=== PATIENT | female | born 1970 ===

== ENCOUNTER 2024-10-03 15:06 | Emergency (ER) | payer SELFPAY ==
[2024-10-03] VITALS (17 sets, daily range): BP systolic 121–143; BP diastolic 67–79; PULSE 97–109; RESP 22–45; TEMP 37.1; O2SAT 83–96; BMI 15.3
--- NOTE | 2024-10-03 18:17 | ED.NAVMDI ---
HPI - Nausea/Vomiting/Diarrhea General Chief complaint: Nausea/Vomiting Stated complaint: Bloody Vomit, rib pain Time Seen by Provider: 10/03/24 18:12 History of Present Illness HPI Narrative: This 54-year-old female comes in reporting nausea, vomiting, and some diarrhea that began today. She has associated bilateral rib pain related to vomiting. She also wrist ports some small amount of blood in the vomit. Prior to this she states she has been in good health. She is not on any medications. She is cachectic with a BMI of 15. Related Data Home Medications ?Medication ?Instructions ?Recorded ?Confirmed No Known Home Medications 10/03/24 10/03/24 Allergies Allergy/AdvReac Type Severity Reaction Status Date / Time ibuprofen (From Motrin) Allergy Severe Verified 10/03/24 15:24 ketorolac (From Toradol) Allergy Severe Verified 10/03/24 15:24 tramadol Allergy Severe Verified 10/03/24 15:24 Review of Systems Status of ROS: Reports: 10 or more systems reviewed and unremarkable except as noted in History and below Narrative: Constitutional: No fevers, no weight gain or loss. Eyes: No discharge. No vision changes. HENT: No congestion, no sore throat, no ear pain. Cardiovascular: No chest pain, no palpitations. Respiratory: No shortness of breath, no wheezes, no cough. Gastrointestinal: No abdominal pain. Nausea, vomiting, and some diarrhea. Genitourinary: No dysuria, no hematuria. Musculoskeletal: Normal range of motion. Skin: No rashes, no pruritis. Neurological: No dizziness, weakness, sensory change, speech change. Endo/Heme/Allergies: No bruising or bleeding. No polydipsia. Pysch: no suicidality, no anxiety, no insomnia. All other systems reviewed and are negative. [facility] Social History Smoking Status: Current every day smoker What tobacco products do you use: cigarettes Do you use any of these nicotine containing products: None How often do you have a drink containing alcohol: never How often do you have six or more drinks on one occasion: Never AUDIT-C Alcohol total score: 0 Non-prescribed substance use: denies use Exam Narrative: Exam Narrative: Constitutional: No acute distress. HEENT: Normocephalic, atraumatic. Neck: Normal range of motion. Nontender. Supple. Heart: Regular. No murmurs. Tachycardia, rate around 105-110 beats per minute. Intact distal pulses. Lungs: Clear to auscultation. No wheezes, rhonchi, or rales. Abdomen: Normal bowel sounds. Nontender. No rebound tenderness. Bilateral lower rib discomfort when taking a deep breath and when pressing in these areas. Genitalia: Deferred. Back: No midline tenderness. Normal range of motion. Extremities: Normal range of motion. No injury. Skin: Intact. No rash. Warm. No erythema or pallor. Neurologic: No altered sensation. No weakness. Alert and oriented. Psychiatric: No suicidality. No anxiety or depression. No insomnia. Nursing notes and vitals signs are reviewed. Const: Vital Signs, click to edit/add: Vital Signs - 24 hr 10/03/24 15:14 10/03/24 18:48 10/03/24 18:49 Temperature 98.7 F Pulse Rate 98 98 Pulse Rate [Right Pulse Oximeter] 108 H Respiratory Rate 22 Blood Pressure 138/68 Blood Pressure [Ri ght Upper Arm] 121/67 Pulse Oximetry 95 92 92 Oxygen Delivery Me thod Room Air Oxygen Flow Rate 10/03/24 19:00 10/03/24 19:11 10/03/24 19:25 Temperature Pulse Rate 97 97 103 H Pulse Rate [Right Pulse Oximeter] Respiratory Rate Blood Pressure 132/74 Blood Pressure [Ri ght Upper Arm] Pulse Oximetry 90 93 96 Oxygen Delivery Me thod Oxygen Flow Rate 10/03/24 19:28 10/03/24 19:30 10/03/24 19:31 Temperature Pulse Rate 105 H 100 100 Pulse Rate [Right Pulse Oximeter] Respiratory Rate Blood Pressure 143/79 H Blood Pressure [Ri ght Upper Arm] Pulse Oximetry 93 93 91 Oxygen Delivery Me thod Oxygen Flow Rate 10/03/24 19:45 10/03/24 20:00 10/03/24 20:01 Temperature Pulse Rate 109 H 98 98 Pulse Rate [Right Pulse Oximeter] Respiratory Rate 45 H 26 H 31 H Blood Pressure Blood Pressure [Ri ght Upper Arm] Pulse Oximetry 91 88 88 Oxygen Delivery Me thod Oxygen Flow Rate 10/03/24 20:02 10/03/24 20:22 10/03/24 20:23 Temperature Pulse Rate 99 Pulse Rate [Right Pulse Oximeter] Respiratory Rate 23 Blood Pressure Blood Pressure [Ri ght Upper Arm] Pulse Oximetry 87 L 83 L 91 Oxygen Delivery Me thod Room Air Nasal Cannula Oxygen Flow Rate 1 10/03/24 20:28 10/03/24 20:29 Temperature Pulse Rate Pulse Rate [Right Pulse Oximeter] Respiratory Rate Blood Pressure Blood Pressure [Ri ght Upper Arm] Pulse Oximetry 83 L 91 Oxygen Delivery Me thod Room Air Nasal Cannula Oxygen Flow Rate 1 Course Vital Signs Vital signs: Initial Vital Signs Temperature 98.7 F 10/03/24 15:14 Temperature Source Temporal Artery Scan 10/03/24 15:14 Pulse Rate 108 H 10/03/24 15:14 Pulse Rhythm Regular 10/03/24 15:14 Pulse Strength 3+ Normal 10/03/24 15:14 Respiratory Rate 22 10/03/24 15:14 Blood Pressure 121/67 10/03/24 15:14 Blood Pressure Mean 85 10/03/24 15:14 Blood Pressure Position Sitting 10/03/24 15:14 Pulse Oximetry 95 10/03/24 15:14 Oxygen Delivery Method Room Air 10/03/24 15:14 Vital Signs Temperature 98.7 F 10/03/24 15:14 Pulse Rate 108 H 10/03/24 15:14 Respiratory Rate 22 10/03/24 15:14 Blood Pressure 121/67 10/03/24 15:14 Pulse Oximetry 95 10/03/24 15:14 Oxygen Delivery Method Room Air 10/03/24 15:14 Temperature 98.7 F 10/03/24 15:14 Pulse Rate 99 10/03/24 20:02 Respiratory Rate 23 10/03/24 20:02 Blood Pressure 143/79 H 10/03/24 19:31 Pulse Oximetry 91 10/03/24 20:29 Oxygen Delivery Method Nasal Cannula 10/03/24 20:29 Oxygen Flow Rate 1 10/03/24 20:29 Medications Administered Medications: Generic Name Dose Route Start Last Admin Trade Name Freq PRN Reason Stop Dose Admin Hydromorphone HCl 0.3 mg 10/03/24 19:50 10/03/24 19:54 Hydromorphone 0.5 Mg/0.5 Ml Inj IVP 0.3 mg Q2H PRN Administration Pain Discontinued Medications Generic Name Dose Route Start Last Admin Trade Name Freq PRN Reason Stop Dose Admin Hydromorphone HCl 0.2 mg 10/03/24 18:36 10/03/24 18:42 Hydromorphone 0.5 Mg/0.5 Ml Inj IVP 10/03/24 18:37 0.2 mg ONCE ONE Administration Sodium Chloride 1,000 mls @ 1,000 mls/hr 10/03/24 18:15 10/03/24 19:40 0.9 % Sodium Chloride 1000 Ml IV 10/03/24 19:14 Infused .Q1H NADEEN Infusion Ketorolac Tromethamine 15 mg 10/03/24 18:15 10/03/24 18:43 Ketorolac 30 Mg/Ml Inj IVP 10/03/24 18:16 Not Given ONCE ONE Ondansetron HCl 4 mg 10/03/24 18:15 10/03/24 18:28 Ondansetron 2 Mg/Ml Inj IVP 10/03/24 18:16 4 mg ONCE ONE Administration MDM - Nausea/Vomiting/Diarrhea MDM Narrative Medical decision making narrative: This patient comes in reporting vomiting where she noted some small amount of blood in the emesis. She is complaining of bilateral rib pain also. I did obtain records from her previous visit elsewhere where she had similar symptoms. She had a CT scan then and labs which returned normal except her hemoglobin then was 9.9. She chose to leave before they were finished with the workup at that visit. Today her hemoglobin returns at 7.7. She noted after arrival here that she had been to the restroom and had gross hematuria. She is not on any anticoagulants. Her vital signs have been stable throughout her stay here. She is not showing any signs of active bleeding and other than complaining of pain she is not showing worrisome signs of some kind of ongoing internal bleeding. She does have a remote history of cervical cancer and is done with treatment for this. The patient did receive a L of normal saline intravenously. Her hemoglobin will likely be lower as a result of a dilutional effect of the IV fluids. Additionally her potassium returns at 2.7. Urinalysis shows evidence of infection. I recommended admission to the patient and made a phone call to the hospitalist on-call. Dr. Todd would not accept this patient for admission stating concern about possibility of an ongoing GI bleed. I did state that there is no evidence of such ongoing GI bleeding. After some ongoing discussion of regarding what is good for this patient it was clear that the hospitalist would not accept this patient here. I recommended to the patient then that we transfer elsewhere to attend to these matters. After about 15 or 20 minutes the nurses informed me that she wants to leave against medical advice. I did provide [facility] prescriptions for her including Keflex and some tablets of [place]. Lab Data Labs: Lab Results 10/03/24 10/03/24 Range/Units 18:25 19:23 WBC 5.61 (4.50-11.00) K/uL RBC 3.80 L (4.00-5.20) m/uL Hgb 7.7 L* (12.0-16.0) gm/dL Hct 27.1 L (33.0-51.0) % MCV 71 L (80-100) fL MCH 20 L (26-34) pg MCHC 28 L (32-36) gm/dL RDW Coeff of Devin 18.2 H (11.5-15.5) % Plt Count 256 (140-440) K/uL Neut % (Auto) 31.5 L (42.0-72.0) % Lymph % (Auto) 53.7 H (20-44) % Dundy % (Auto) 13.0 H (0.0-11.0) % Eos % (Auto) 1.4 (0.0-7.0) % Baso % (Auto) 0.4 (0.0-3.0) % Neut # (Auto) 1.80 (1.7-7.0) K/uL Lymph # (Auto) 3.00 H (0.90-2.90) K/uL Dundy # (Auto) 0.70 (0.00-0.90) K/UL Eos # (Auto) 0.08 (0.00-0.50) K/uL Baso # (Auto) 0.02 (0.00-0.30) K/uL Abs Immat Gran (auto) 0.00 (0.00-0.30) K/uL Imm/Tot Granulo (auto) 0.0 % Sodium 138 (135-149) mmol/L Potassium 2.6 L* (3.6-5.1) mmol/L Chloride 98 (96-114) mmol/L Carbon Dioxide 36 H (20-32) mmol/L Anion Gap 4 L (7-15) mEq/L BUN 15 (7-30) mg/dL Creatinine 0.3 L (0.5-1.5) mg/dL Estimated Creat Clear 144.14 Estimated GFR 125 ml/min Glucose 91 (60-115) mg/dL Calcium 9.2 (8.4-10.6) mg/dL Total Bilirubin 0.3 (0.1-1.5) mg/dL Direct Bilirubin 0.2 (0.0-0.5) mg/dL AST 30 (12-35) U/L ALT 27 (4-35) U/L Alkaline Phosphatase 163 H (40-150) U/L Total Protein 6.9 (6.0-8.3) g/dL Albumin 3.6 (3.3-5.0) g/dL Lipase 237 (23-300) U/L Urine Color Yellow (Yellow) Urine Appearance Cloudy A (Clear) Urine pH 8.5 (5.0-8.5) Ur Specific [place] 1.015 (1.000-1.030) Urine Protein 2+ A (Negative) Urine Glucose (UA) Negative (Negative) Urine Ketones Negative (Negative) Urine Blood 3+ A (Negative) Urine Nitrite Positive A (Negative) Urine Bilirubin Negative (Negative) Urine Urobilinogen 1.0 (0.2-1.0) Ur Leukocyte Esterase Negative (Negative) Urine RBC 2-5 A (0-2) Urine WBC 10-25 A (0-5) Ur Squamous Epith Cells Moderate A (None-Few) Triple Phos Crystals Moderate A (None) Amorphous Sediment (None) Urine Bacteria Moderate A (None) Discharge Plan Discharge Clinical Impression: Anemia, Urinary tract infection, Acute hypokalemia Patient Disposition: Left Against Medical Advice Condition: Unchanged Prescriptions: No Action No Known Home Medications Follow Up/Referrals: Provider,Not a Local [Primary Care Provider] - Stand Alone Forms: [employer] Info Instructions
[2024-10-03] MEDS: ONDANSETRON 2 MG/ML inj 4 MG IVP (18:28)
[2024-10-03] MEDS: 0.9 % SODIUM CHLORIDE 1000 ml 1,000 ML IV (18:40)
[2024-10-03] MEDS: HYDROmorphone 0.5 mg/0.5 ml inj 0.2 MG IVP (18:42)
[2024-10-03 19:14] LABS: Basophils Absolute Auto 0.02 K/uL (0.00-0.30); Basophils Percent Auto 0.4 % (0.0-3.0); Eosinophils Absolute Auto 0.08 K/uL (0.00-0.50); Eosinophils Percent Auto 1.4 % (0.0-7.0); Hematocrit 27.1 % (33.0-51.0); Lymphocytes Percent Auto 53.7 % (20-44); Mean Corpuscular HGB Conc 28 gm/dL (32-36); Mean Corpuscular Hemoglobin 20 pg (26-34); Mean Corpuscular Volume 71 fL (80-100); Neutrophils Percent Auto 31.5 % (42.0-72.0); Platelet Count* 256 K/uL (140-440); RDW Coefficient of Variation % 18.2 % (11.5-15.5); White Blood Count* 5.61 K/uL (4.50-11.00)
[2024-10-03 19:16] LABS: Hemoglobin* 7.7 gm/dL (12.0-16.0); Slide Review Reflex No
[2024-10-03 19:27] LABS: Albumin* 3.6 g/dL (3.3-5.0); Chloride* 98 mmol/L (96-114); Sodium* 138 mmol/L (135-149)
[2024-10-03 19:29] LABS: Blood Urea Nitrogen* 15 mg/dL (7-30); Creatinine* 0.3 mg/dL (0.5-1.5); Est. Creatinine Clearance* 144.14; Estimated Glomerular Filt Rate 125 ml/min
[2024-10-03 19:30] LABS: Alanine Aminotransferase* 27 U/L (4-35); Alkaline Phosphatase* 163 U/L (40-150); Anion Gap 4 mEq/L (7-15); Aspartate Amino Transferase* 30 U/L (12-35); Bilirubin Direct* 0.2 mg/dL (0.0-0.5); Bilirubin Total* 0.3 mg/dL (0.1-1.5); Calcium* 9.2 mg/dL (8.4-10.6); Carbon Dioxide* 36 mmol/L (20-32); Glucose* 91 mg/dL (60-115); Lipase* 237 U/L (23-300); Total Protein* 6.9 g/dL (6.0-8.3)
[2024-10-03 19:42] LABS: Appearance Urine Cloudy (Clear); Bilirubin Urine Negative (Negative); Blood Urine 3+ (Negative); Color Urine Yellow (Yellow); Glucose Urine Negative (Negative); Ketones Urine Negative (Negative); Leukocyte Esterase Urine Negative (Negative); Nitrite Urine Positive (Negative); Protein Urine 2+ (Negative); Specific Gravity Urine 1.015 (1.000-1.030); pH Urine 8.5 (5.0-8.5)
[2024-10-03 19:44] LABS: Potassium* 2.6 mmol/L (3.6-5.1)
--- NOTE | 2024-10-03 19:45 | ED.NURSE ---
Potassium of 2.6 reported from the lab, MD Pascual aware.
[2024-10-03 19:48] LABS: Bacteria Urine Moderate; Squamous Epithelial Cell Urine Moderate (None-Few)
[2024-10-03 19:49] LABS: Triple Phosphate Crystal Urine Moderate
[2024-10-03] MEDS: HYDROmorphone 0.5 mg/0.5 ml inj 0.3 MG IVP (19:54)
== END 2024-10-03 21:22 | disposition left against medical advice (07) ==
PROVIDERS: Emergency Provider Emergency Medicine Emergency Medical Services
DX: D64.9 Anemia, unspecified (principal); N39.0 Urinary tract infection, site not specified; E87.6 Hypokalemia; Z53.29 Procedure and treatment not carried out because of patient's decision for other reasons
CPT/HCPCS: 36415; 80048; 80076; 81001; 83690; 85025; 87086; 96374; 96375; 99284; J1171; J2405; J7030